=== PATIENT | male | born 1955 | race Caucasian/White ===

== ENCOUNTER 2017-06-25 04:23 | Observation (INO) | payer BC ==
--- NOTE | 2017-06-25 04:42 | ED ---
Chest Pain HPI - General Chief Complaint: Chest Pain Stated Complaint: Chest pain, KALI Time Seen by Provider: 06/25/17 04:36 Source: patient, family Mode of arrival: ambulatory Limitations: no limitations - History of Present Illness MD Complaint: chest pain Onset/Timin -: hour(s) Onset: during rest Pain Location: substernal Pain Radiation: other (Shoulders) Severity: moderate Quality: aching Consistency: constant Improves With: nothing Worsens With: nothing Anginal Symptoms: nausea, vomiting, diaphoresis, dyspnea Treatments Prior to Arrival: none - Related Data Home Medications Medication Instructions Recorded Confirmed Acetaminophen-Codeine 300-30mg 1 tab PO Q6H PRN 06/25/17 06/25/17 [Tylenol w/codeine #3] Atorvastatin [Lipitor] 20 mg PO DAILY 06/25/17 06/25/17 Lisinopril [Zestril] 20 mg PO DAILY 06/25/17 06/25/17 Omeprazole [PriLOSEC] 20 mg PO [id number] 06/25/17 06/25/17 Allergies Allergy/AdvReac Type Severity Reaction Status Date / Time No Known Allergies Allergy Verified 06/25/17 04:29 Review of Systems ROS Statement: Those systems with pertinent positive or pertinent negative responses have been documented in the HPI. ROS Other: All systems not noted in ROS Statement are negative. Constitutional: Denies: fever, chills Respiratory: Reports: dyspnea. Denies: cough Cardiovascular: Reports: chest pain. Denies: palpitations, orthopnea, edema, syncope Gastrointestinal: Reports: nausea, vomiting. Denies: abdominal pain, diarrhea Musculoskeletal: Denies: back pain Skin: Denies: rash Neurological: Denies: headache, weakness, numbness EKG Findings - EKG Results: EKG: interpreted by ERMD, sinus rhythm (Rate approximately 93 bpm), normal axis , normal QRS, normal ST/T, no acute changes Past Medical History Past Medical History: Hyperlipidemia, Hypertension History of Any Multi-Drug Resistant Organisms: None Reported Past Surgical History: Appendectomy Past Psychological History: No Psychological Hx Reported Smoking Status: Never smoker Past Alcohol Use History: Occasional Past Drug Use History: None Reported General Exam Limitations: no limitations General appearance: alert, in distress Head exam: Present: atraumatic, normocephalic ENT exam: Present: normal oropharynx Neck exam: Present: normal inspection Respiratory exam: Present: normal lung sounds bilaterally. Absent: respiratory distress, wheezes, rales, rhonchi, stridor Cardiovascular Exam: Present: regular rate, normal rhythm, normal heart sounds. Absent: systolic murmur, diastolic murmur, rubs, gallop GI/Abdominal exam: Present: soft. Absent: distended, tenderness, guarding, rebound, rigid, mass Extremities exam: Present: normal inspection, normal capillary refill. Absent: pedal edema, calf tenderness Back exam: Present: normal inspection. Absent: CVA tenderness (R), CVA tenderness (L) Neurological exam: Present: alert Skin exam: Present: warm, intact, normal color, diaphoretic. Absent: rash Course Vital Signs 06/25/17 06/25/17 06/25/17 04:25 05:14 05:20 Temperature 98.6 F Pulse Rate 104 H 82 87 Respiratory 20 18 18 Rate Blood Pressure 189/109 165/75 127/62 O2 Sat by Pulse 100 98 95 Oximetry 06/25/17 06/25/17 05:57 06:24 Temperature Pulse Rate 69 68 Respiratory 18 18 Rate Blood Pressure 118/58 O2 Sat by Pulse 99 Oximetry - Reevaluation(s) Reevaluation #1: 06/25/17 06:34 This patient's a 62-year-old man presenting with chest pain, diaphoresis, nausea and vomiting, and dyspnea. Clinically his presentation very concerning for acute coronary syndrome, though his EKG does look very good. The case was discussed with Dr. Catalan as he was in the [employer] performing the procedure, and they will see the patient early today. Disposition Clinical Impression: Chest pain Disposition: ADMITTED IP TO THIS [facility] Condition: Good Is patient prescribed a controlled substance at d/c from ED?: No Referrals: Evangelist Reeves DO [Primary Care Provider] - 1-2 days
[2017-06-25 04:53] LABS: Glucose,Whole Blood 189 mg/dL (75-99)
[2017-06-25] MEDS ORDERED: ONDANSETRON 4 MG/2 ML VIAL IVP STA (04:55)
[2017-06-25] MEDS ORDERED: ASPIRIN 81 MG PO STA (04:55)
[2017-06-25] MEDS ORDERED: NITROGLYCERIN SL TABS 0.4 MG TAB SUBLINGUAL STA (04:55)
[2017-06-25] MEDS: MORPHINE SULFATE 4 MG/ML SYRINGE IV STA ×2 (05:09→06:31)
[2017-06-25 05:14] LABS: Basophils % (A) 1 %; Eosinophils # (A) 0.2 k/uL (0-0.7); Eosinophils % (A) 3 %; HCT 46.9 % (39.0-53.0); HGB 16.3 gm/dL (13.0-17.5); Lymphocytes # (A) 1.8 k/uL (1.0-4.8); Lymphocytes % (A) 35 %; MCH 30.9 pg (25.0-35.0); MCHC 34.7 g/dL (31.0-37.0); MCV 88.8 fL (80.0-100.0); Mean Platelet Volume 8.4; Monocytes # (A) 0.4 k/uL (0-1.0); Monocytes % (A) 8 %; Neutrophils # (A) 2.7 k/uL (1.3-7.7); Neutrophils % (A) 52 %; Platelet Count 116 k/uL (150-450); RBC 5.28 m/uL (4.30-5.90); RDW 12.5 % (11.5-15.5); WBC 5.2 k/uL (3.8-10.6)
[2017-06-25 05:23] LABS: ALT 42 U/L (21-72); AST 33 U/L (17-59); Albumin 4.3 g/dL (3.5-5.0); Alkaline Phosphatase 94 U/L (38-126); Amylase 76 U/L (30-110); Anion Gap 15 mmol/L; Blood Urea Nitrogen 19 mg/dL (9-20); Calcium 9.5 mg/dL (8.4-10.2); Carbon Dioxide 19 mmol/L (22-30); Chloride 109 mmol/L (98-107); Glucose 188 mg/dL (74-99); Lipase 66 U/L (23-300); Magnesium 1.9 mg/dL (1.6-2.3); Potassium 4.1 mmol/L (3.5-5.1); Sodium 143 mmol/L (137-145); Total Bilirubin 0.5 mg/dL (0.2-1.3); Total Protein 7.2 g/dL (6.3-8.2)
--- NOTE | 2017-06-25 05:25 | XR ---
EXAM: XR Chest, 1 View CLINICAL HISTORY: ITS.REASON XR Reason: chest pain TECHNIQUE: Frontal view of the chest. COMPARISON: No relevant prior studies available. FINDINGS: Lungs: Low lung volumes with accentuated lung markings. Probable mild basilar atelectasis. Pleural space: Unremarkable. No pneumothorax. Heart: Unremarkable. Mediastinum: Unremarkable. Bones/joints: No acute fracture. IMPRESSION: Probable mild basilar atelectasis.
[2017-06-25 05:28] LABS: Creatine Kinase 212 U/L (55-170)
[2017-06-25 05:41] LABS: Creatine Kinase MB 1.8 ng/mL (0.0-2.4); Troponin I <0.012 ng/mL (0.000-0.034)
[2017-06-25] MEDS ORDERED: NITROGLYCERIN SL TABS 0.4 MG TAB SUBLINGUAL PRN (06:31)
[2017-06-25] MEDS ORDERED: Acetaminophen-Codeine 300-30mg TAB PO PRN (06:33)
[2017-06-25] MEDS ORDERED: ENOXAPARIN 120 MG/0.8 ML SYRINGE SQ STA (06:36)
[2017-06-25] MEDS ORDERED: SODIUM CHLORIDE 0.9% 1,000 ML IV SCH (06:45)
[2017-06-25] MEDS ORDERED: PANTOPRAZOLE 40 MG TABLET PO SCH (07:30)
[2017-06-25 07:55] VITALS: RESP 16
[2017-06-25] MEDS ORDERED: LISINOPRIL 20 MG TAB PO SCH (09:00)
[2017-06-25] MEDS ORDERED: ATORVASTATIN 20 MG TAB PO SCH (09:00)
--- NOTE | 2017-06-25 09:07 | CONS ---
CONSULTATION Mr. Hernández is a 62-year-old male with known history of hypertension, hyperlipidemia, who presented with symptoms of chest discomfort. Yesterday at home he could not sleep. He got up, sat in the chair and then when he is was trying to get back to bed, he complained of chest discomfort, it was severe, going to the shoulders, associated with some dyspnea and mild nausea. At the time my evaluation, he is pain-free. Patient is average in his exercise tolerance, has no exertional chest pain. Denies any symptoms of dyspnea on exertion. No dizziness. No palpitation, no syncope. Had similar symptoms [address] [facility] and underwent cardiac catheterization and was told there was no evidence of obstructive coronary artery disease. He has no PND, orthopnea, or peripheral edema. No dizziness or palpitation or syncope. His coronary risk factors are positive for hypertension, hyperlipidemia. He is nondiabetic, nonsmoker. MEDICATION: Time of presentation included lisinopril 20 mg daily, Lipitor 20 mg daily, omeprazole 20 mg daily, folic acid, aspirin, fish oil, and multivitamin. REVIEW OF SYSTEMS: RESPIRATORY SYSTEM. He has no history of documented asthma, emphysema or bronchitis. GI SYSTEM: No recent GI bleeding. No peptic ulcer disease. SYSTEM: No dysuria or hematuria. NERVOUS SYSTEM: No stroke or seizure. PHYSICAL EXAMINATION: A 62-year-old male, alert, oriented, in no apparent distress. Blood pressure 118/50 with a heart in the 60s. HEAD: Normocephalic. EYES: Sclerae nonicteric. NECK: Good upstroke. No bruit. No jugular venous distention. LUNGS: Clear to auscultation. HEART: Regular rate and rhythm, S1, S2. No S3, no S4. No murmur or rub. ABDOMEN: Soft, nontender. Positive bowel sounds, no organomegaly. EXTREMITIES: No edema. Intact distal pulses. LAB DATA: Revealed troponin less than 0.012. BUN and creatinine 19 and 0.8. His blood sugar was 188, hemoglobin of 16.3. EKG reveals sinus mechanism, normal axis and intervals with no acute changes. Chest x-ray revealed no acute infiltrate. IMPRESSION: 1. Chest and shoulder discomfort of unclear etiology. Has some atypical features for ischemic heart disease in a patient with no evidence of obstructive coronary disease by cardiac catheterization about 6 years ago. 2. Hypertension. 3. Hyperlipidemia. 4. Elevated blood sugar. RECOMMENDATION: I have recommended to obtain a second set of enzymes, if they are negative, I will proceed with stress myocardial perfusion imaging. At the same time, I will obtain echocardiogram with Doppler. I will check a hemoglobin A1c and depending on the results of testing, further recommendation will be made. If there is abnormality on his enzymes or if his stress test is abnormal, then coronary angiography will be needed. Thank you for this consult. Will follow with you. JUANY / SABRINAN: [id number] /
[2017-06-25] MEDS ORDERED: ALPRAZolam 0.25 MG TAB PO PRN (11:56)
[2017-06-25] MEDS ORDERED: ACETAMINOPHEN TAB 325 MG TAB PO PRN (11:56)
[2017-06-25] MEDS ORDERED: NALOXONE 0.4 MG/ML 1 ML VIAL IV PRN (11:56)
[2017-06-25] MEDS ORDERED: CALCIUM CARBONATE 500 MG CHEWABLE PO PRN (11:56)
[2017-06-25] MEDS ORDERED: MELATONIN 3 MG TABLET PO PRN (11:56)
[2017-06-25] MEDS ORDERED: FOLIC ACID 1 MG TAB PO SCH (12:00)
--- NOTE | 2017-06-25 12:02 | ECHOF ---
Referral Reason: MEASUREMENTS -------- HEIGHT: 182.9 cm WEIGHT: 108.4 kg BP: 181/93 IVSd: 1.2 cm (0.6 - 1.1) LVIDd: 3.5 cm (3.9 - 5.3) LVPWd: 1.5 cm (0.6 - 1.1) IVSs: 1.8 cm LVIDs: 1.9 cm LVPWs: 1.7 cm LAESV Index (A-L): 17.80 ml/m Ao Diam: 3.2 cm (2.0 - 3.7) AV Cusp: 1.9 cm (1.5 - 2.6) LA Diam: 3.7 cm (2.7 - 3.8) MV EXCURSION: 11.800 mm (> 18.000) MV EF SLOPE: 72 mm/s (70 - 150) EPSS: 0.3 cm MV E Dewey: 0.79 m/s MV DecT: 236 ms MV A Dewey: 1.02 m/s MV E/A Ratio: 0.77 RAP: 5.00 mmHg RVSP: 8.46 mmHg FINDINGS -------- Sinus rhythm. This was a technically good study. The left ventricular size is normal. There is mild concentric left ventricular hypertrophy. Overa ll left ventricular systolic function is normal with, an EF between 55 - 60 %. The right ventricle is normal in size and function. The left atrium is normal in size. The right atrium is normal in size. The aortic valve is trileaflet, and appears structurally normal. No aortic stenosis or regurgitation. The mitral valve is normal. There is trace mitral regurgitation. Trace tricuspid regurgitation present. The right ventricular systolic pressure, as measured by Dopp ler, is 8.46mmHg. The pulmonic valve was not well visualized. There is no pulmonic regurgitation present. The aortic root size is normal. Normal inferior vena cava with normal inspiratory collapse consistent with estimated right atrial pre ssure of 5 mmHg. There is no pericardial effusion. CONCLUSIONS -------- 1. Sinus rhythm. 2. This was a technically good study. 3. The left ventricular size is normal. 4. There is mild concentric left ventricular hypertrophy. 5. Overall left ventricular systolic function is normal with, an EF between 55 - 60 %. 6. The left atrium is normal in size. 7. The aortic valve is trileaflet, and appears structurally normal. No aortic stenosis or regurgitati on. 8. There is trace mitral regurgitation. 9. Trace tricuspid regurgitation present. 10. The right ventricular systolic pressure, as measured by Doppler, is 8.46mmHg. 11. There is no pulmonic regurgitation present. 12. The aortic root size is normal. 13. Normal inferior vena cava with normal inspiratory collapse consistent with estimated right atrial pressure of 5 mmHg. 14. There is no pericardial effusion. SKIP LOCATOR: Laura Shaw RDCS
--- NOTE | 2017-06-25 13:52 | ECHOS ---
STRESS ECHOCARDIOGRAM INDICATIONS: Chest pain. MEDICATIONS: Lisinopril, Atorvastatin, aspirin. BASELINE HEART RATE: 76 BASELINE BLOOD PRESSURE: 152/83 MAXIMUM HEART RATE: 149 MAXIMUM BLOOD PRESSURE: 155/111 85% MPHR: 134 100% MPHR: 158 METS: 9.1 MAXIMUM STAGE REACHED: II TOTAL EXERCISE TIME: 7:30 CLINICAL INFORMATION: Baseline rhythm is sinus mechanism, rate of 76, normal intervals. Baseline 152/83 mmHg. Patient exercised on Sae protocol for 7 minute 30 seconds reaching peak rate of 149 beats per minute, which is equal to 94%. Peak blood pressure 155/111 mmHg. Test was terminated due to fatigue. There were no chest pains. Electrocardiograph monitoring revealed no evidence of diagnostic ischemic ST deviation. FINDINGS: Baseline echocardiogram revealed normal LV function. At peak exercise, there was normal wall motion augmentation with no hypokinesis or dyskinesis. CONCLUSION: 1. Good exercise tolerance with normal electrocardiographic response to exercise. 2. Normal stress echocardiogram with no evidence of stress-induced ischemia. MMODL / IJN: [id number] /
[2017-06-25 14:11] LABS: Creatine Kinase 137 U/L (55-170)
[2017-06-25 14:24] LABS: Creatine Kinase MB 1.4 ng/mL (0.0-2.4); Troponin I <0.012 ng/mL (0.000-0.034)
[2017-06-25 15:47] VITALS: BP 141/81; PULSE 66; TEMP 98
[2017-06-25] MEDS ORDERED: RX INFO: IV CONTRAST WAS GIVEN 1 EACH MISC MISCELLANE PRN (16:15)
--- NOTE | 2017-06-25 17:04 | HP ---
HISTORY AND PHYSICAL DATE OF SERVICE: 06/25/2017 PRESENTING COMPLAINT: Chest pressure. HISTORY OF PRESENTING COMPLAINT: This is a pleasant 62-year-old patient of Dr. Evangelist Sanchez. Chronic stable medical conditions include GERD, hypertension, hyperlipidemia. Around 3:00 this morning patient woke up feeling rather restless, had central chest pressure going into the left shoulder. Patient had some nausea, shortness of breath. No perspiration. No dizziness. No lightheadedness. Patient came to the hospital to get some nitro, with some help. Right around 6:00 the patient has subsided. Patient is otherwise rather quite active. He did have a cardiac catheterization 6 years ago that was negative. Because of his overall picture, patient was admitted for unstable angina for further workup. Patient denies any calf swelling. REVIEW OF SYSTEMS: CONSTITUTIONAL: None. HEENT: None. RESPIRATORY: As above. CARDIOVASCULAR: As above. GASTROINTESTINAL: Heartburn. GENITOURINARY: None. MUSCULOSKELETAL: None. DERMATOLOGICAL: None. HEMATOLOGICAL: None. LYMPHATICS: None. PSYCHIATRY: None. NEUROLOGICAL: None. PAST MEDICAL HISTORY: 1. GERD. 2. Hypertension. 3. Hyperlipidemia. PAST SURGICAL HISTORY: 1. Appendectomy. 2. EGD. 3. Colonoscopy (negative). SOCIAL HISTORY: Does not smoke. Alcohol rarely. Patient does program machinery. . FAMILY HISTORY: Congestive heart failure. HOME MEDICATIONS: 1. Aspirin 81 mg a day. 2. Fish oil 1000 mg p.o. daily. 3. Multivitamin 1 tablet p.o. daily. 4. Folic acid 1 mg p.o. daily. 5. Prilosec 20 mg with breakfast. 6. Zestril 20 mg p.o. daily. 7. Lipitor 20 mg p.o. daily. ALLERGIES: NONE. PHYSICAL EXAMINATION: VITAL SIGNS ON PRESENTATION: Temperature 98.6, pulse 104, respiration 20, blood pressure 189/109, pulse ox 100% on room air. Repeat blood pressure did come down to 127/62. GENERAL APPEARANCE: Well built; BMI 33.3. Sitting up, not in distress. EYES: Pupils equal. Conjunctivae normal. HEENT: External appearance of nose and ears normal. Oral cavity normal. NECK: JVD not raised. Mass not palpable. RESPIRATORY: Effort normal. Lungs are clear. CARDIOVASCULAR: First and second sounds normal. No edema. ABDOMEN: Soft, nontender. Liver and spleen not palpable. LYMPHATIC: No lymph node palpable in neck or axillae. PSYCHIATRY: Alert and oriented x3. Mood and affect normal. NEUROLOGICAL: Pupils equal. Cranial nerves grossly intact. Power and sensation grossly intact. INVESTIGATIONS: White count 5.2, hemoglobin 16.3, potassium 4.1. BUN and creatinine are normal. Troponin less than 0.012 x3. EKG shows normal sinus rhythm. Two-D echocardiogram ejection fraction 55% to 60%. ASSESSMENT: 1. Acute anterior chest wall pain with some cardiac-sounding component in a patient whose risk factors include hypertension, hyperlipidemia and patient's age of 62. Troponin x3 negative. Cardiology was consulted. 2. Gastroesophageal reflux disease. 3. Essential hypertension. 4. Hyperlipidemia. PLAN: Cardiology was consulted. Patient has been ordered a stress echocardiogram. Patient was put on aspirin, Zestril. If the stress test is negative, we will consider ruling out a PE. Care was discussed with the patient. Questions were answered. MMODL / IJN: [id number] /
--- NOTE | 2017-06-25 17:09 | CT ---
EXAMINATION TYPE: CT angio chest DATE OF EXAM: 06/25/2017 COMPARISON: Chest x-ray earlier today. HISTORY: Chest pain CT DLP: 672 mGycm. Automated Exposure Control for Dose Reduction was Utilized. CONTRAST: CTA scan of the thorax is performed with IV Contrast, patient injected with 90 mL of Isovue 300, pulm onary embolism protocol. MIP Images are created on CT scanner and reviewed. FINDINGS: LUNGS: Some mild left basilar linear scarring and/or atelectasis is redemonstrated. There is no lluvia picious focal consolidation or groundglass opacity is seen. No concerning parenchymal nodule or mass is identified. There is no pleural effusion or pneumothorax seen. The tracheobronchial tree is paten t. MEDIASTINUM: There is satisfactory enhancement of the pulmonary artery and its branches, there is no CT evidence for pulmonary embolism. There are no greater than 1 cm hilar or mediastinal lymph nodes. No cardiomegaly or pericardial effusion is seen. OTHER: Liver is hypodense suggesting mild fatty infiltration. Mild fatty infiltration of pancreas is also present. There is moderate multilevel spurring in the mid to lower thoracic spine anteriorly and laterally. IMPRESSION: 1. No CT evidence for acute pulmonary embolism. 2. No suspicious acute pulmonary process.
--- NOTE | 2017-06-26 00:43 | DS ---
DISCHARGE SUMMARY DATE OF ADMISSION: June 25, 2017. DATE OF DISCHARGE: June 25, 2017. FINAL DIAGNOSES: 1. Acute anterior chest wall pain could be from esophageal spasm. 2. Gastroesophageal reflux disease. 3. Essential hypertension. 4. Hyperlipidemia. HOSPITAL COURSE: This patient presented with chest pain. Did undergo stress echocardiogram that was negative. Pulmonary embolism was ruled out. EXAM: Lungs are clear. Cardiovascular 1st and 2nd sounds normal. CONSULTATION: Dr. Quinn from Cardiology. DISCHARGE MEDICATIONS: 1. Aspirin 81 mg a day. 2. Lipitor 20 mg a day. 3. Folic acid 1 mg a day. 4. Zestril 20 mg a day. 5. Multivitamin 1 tab p.o. daily. 6. Prilosec 20 mg a day. FOLLOWUP: With Cardiology in 2 weeks. Follow up with Ktity Sanchez in 3 days. On examination lungs are clear. Cardiovascular 1st and second sounds normal. Copy Dr. Evangelist Sanchez. MMODL / IJN: [id number] /
[2017-06-26] MEDS ORDERED: ASPIRIN 81 MG PO SCH (09:00)
[2017-06-26] MEDS ORDERED: ASPIRIN 325 MG TAB PO SCH (09:00)
== END 2017-06-25 18:14 | disposition home or self-care (01) ==
LOC: EC 04:23 → 3OBS 06:32
PROVIDERS: ADMIT Hospitalist; ATTEND Hospitalist
DX: R07.89 Other chest pain (principal); K22.4 Dyskinesia of esophagus; R11.2 Nausea with vomiting, unspecified; R06.00 Dyspnea, unspecified; R06.02 Shortness of breath; R61 Generalized hyperhidrosis; K21.9 Gastro-esophageal reflux disease without esophagitis; I10 Essential (primary) hypertension; E78.5 Hyperlipidemia, unspecified; R73.9 Hyperglycemia, unspecified; Z79.82 Long term (current) use of aspirin; Z79.899 Other long term (current) drug therapy; Z82.49 Family history of ischemic heart disease and other diseases of the circulatory system
CPT/HCPCS: 99285; 96374 ×2; 96372 ×2; 36415; 93005; 93306; 93351; 80053; 82150; 82550; 82553; 83690; 83735; 84484; 85025; 83036; 71045; 71275; G0378; J2405; J1650; Q9950; Q9967